=== PATIENT | female | born 1990 | race Caucasian/White ===

== ENCOUNTER 2016-10-15 15:16 | Emergency (ER) | payer OTHER, BC ==
[~2016-10-15] VITALS: Ht 170.2 cm; Wt 79.0 kg
[~2016-10-15 15:16] MED LIST: BIRTH CONTROL PATCH; COLACE100 MG PO; FIORICET,ESG1 TABLET PO; IBUPROFEN600 MG PO; KEFLEX500 MG PO; MICRONOR0.35 MG PO; NEXPLANON68 MG SC; PERCOCET 5/31 TABLET PO; PRENATAL TABLE1 EAC3 PO; ZANTAC75 M1 PO; ZOFRAN ODT8 MG PO; ~No Medications
[2016-10-15 15:39] LABS: HEMATOCRIT 40.4 % (36.0-46.0); MCH 28.6 PG (29.0-34.0); MCHC 32.9 G/DL (30.0-36.0); MCV 86.9 FL (83-99); MEAN PLAT.VOLUME 10.9 uM^3 (9.5-12.4); PLATELET COUNT 264 K/uL (156-360); RBC DIS.WIDTH-CV 12.3 % (11.8-14.6); RBC DIS.WIDTH-SD 39.1 % (39-53); RED BLOOD COUNT 4.65 M/uL (3.80-5.20); WHITE BLOOD COUNT 9.3 K/uL (4.1-10.2)
[2016-10-15 18:29] LABS: ADD MIUA? YES; BILIRUBIN NEGATIVE; BLOOD MODERATE; COLOR STRAW ((YELLOW)); GLUCOSE (STRIP) NEGATIVE; KETONES NEGATIVE; LEUKOCYTES NEGATIVE; NITRITE NEGATIVE; PROTEIN (STRIP) NEGATIVE; UROBILINOGEN 0.2 MG/DL (0.2-1.0)
[2016-10-15 18:36] LABS: BACTERIA RARE /HPF; EPITHELIAL CELLS RARE /HPF; MUCUS TRACE /LPF; RED BLOOD CELLS 0-5 /HPF (0-5); UCUL ADDED? NO; WHITE BLOOD CELLS 0-5 /HPF (0-5)
[2016-10-15 19:12] VITALS: BP 122/81
== END 2016-10-15 19:13 | disposition left against medical advice (07) ==
LOC: EME 15:16
DX: O20.9 Hemorrhage in early pregnancy, unspecified (principal); O99.89 Other specified diseases and conditions complicating pregnancy, childbirth and the puerperium; M54.5 Low back pain; Z3A.01 Less than 8 weeks gestation of pregnancy; Z88.6 Allergy status to analgesic agent
CPT/HCPCS: 76801; 81003; 84702; 85027

== ENCOUNTER 2016-12-07 10:58 | Emergency (ER) | payer BC ==
[~2016-12-07] VITALS: Ht 170.2 cm; Wt 79.9 kg
[2016-12-07 11:55] LABS: HEMATOCRIT 38.2 % (36.0-46.0); MCH 28.8 PG (29.0-34.0); MCHC 33.5 G/DL (30.0-36.0); MEAN PLAT.VOLUME 11.2 uM^3 (9.5-12.4); PLATELET COUNT 219 K/uL (156-360); RBC DIS.WIDTH-CV 12.6 % (11.8-14.6); RBC DIS.WIDTH-SD 39.7 % (39-53); RED BLOOD COUNT 4.44 M/uL (3.80-5.20); WHITE BLOOD COUNT 10.6 K/uL (4.1-10.2)
[2016-12-07 12:13] LABS: ADD MIUA? YES; BILIRUBIN NEGATIVE; BLOOD NEGATIVE; COLOR YELLOW ((YELLOW)); GLUCOSE (STRIP) NEGATIVE; KETONES NEGATIVE; LEUKOCYTES NEGATIVE; NITRITE NEGATIVE; PROTEIN (STRIP) NEGATIVE; SPECIFIC GRAVITY 1.023 (1.000-1.030); UROBILINOGEN 0.2 MG/DL (0.2-1.0)
[2016-12-07 12:16] LABS: BACTERIA NONE SEEN /HPF; EPITHELIAL CELLS RARE /HPF; MUCUS 3+ /LPF; RED BLOOD CELLS 0-5 /HPF (0-5); UCUL ADDED? NO; WHITE BLOOD CELLS 0-5 /HPF (0-5)
[2016-12-07 12:40] LABS: QUANTITATIVE HCG 54050.9 MIU/ML
[2016-12-07 12:41] LABS: CHLORIDE 108 mEq/L (99-109); POTASSIUM 3.8 mEq/L (3.7-5.4); SODIUM 137 mEq/L (136-147)
[2016-12-07 12:43] LABS: GLUCOSE 87 mg/dL (70-99)
[2016-12-07 12:44] LABS: ANION GAP 8 MEQ/L (2-14)
[2016-12-07 12:46] LABS: GFR ESTIMATE (CALCULATED) > 59 mL/min/
[2016-12-07 12:47] LABS: UREA NITROGEN (BUN) 7 mg/dL (9-23)
[2016-12-07 12:59] LABS: POINT-OF-CARE METER ID UU13113702
[2016-12-07] MEDS ORDERED: ZOFRAN ODT4 MG PO (15:22)
[2016-12-07 15:51] VITALS: BP 127/78
== END 2016-12-07 15:54 | disposition home or self-care (01) ==
LOC: EME 10:58
PROVIDERS: Physician Assistant
DX: O21.0 Mild hyperemesis gravidarum (principal); O26.892 Other specified pregnancy related conditions, second trimester; R42 Dizziness and giddiness; R55 Syncope and collapse; M54.5 Low back pain; Z3A.14 14 weeks gestation of pregnancy
CPT/HCPCS: 80048; 81003; 82948; 84702; 85027; 99281; 99285; J2405; J7030

== ENCOUNTER → 2016-12-11 | Outpatient (CLI) | payer BC ==
[~2016-12-11] VITALS: Ht 167.6 cm; Wt 76.0 kg
[~2016-12-11] MED LIST changes: +ZOFRAN ODT4 MG PO
[2016-12-11 17:52] VITALS: BP 99/53
== END | disposition home or self-care (01) ==
LOC: IVINF 17:30
DX: O21.0 Mild hyperemesis gravidarum (principal); Z3A.00 Weeks of gestation of pregnancy not specified
CPT/HCPCS: 96361; 96374; 96374 59; J2405; J7120

== ENCOUNTER 2017-03-28 18:17 | Emergency (ER) | payer BC ==
[~2017-03-28] VITALS: Ht 167.6 cm; Wt 87.7 kg
[2017-03-28 19:33] LABS: ADD MIUA? YES; BILIRUBIN NEGATIVE; BLOOD NEGATIVE; COLOR YELLOW ((YELLOW)); GLUCOSE (STRIP) NEGATIVE; KETONES NEGATIVE; LEUKOCYTES NEGATIVE; NITRITE NEGATIVE; PROTEIN (STRIP) NEGATIVE; SPECIFIC GRAVITY 1.021 (1.000-1.030)
[2017-03-28 19:48] LABS: HEMATOCRIT 33.6 % (36.0-46.0); MCH 28.5 PG (29.0-34.0); MCV 86.4 FL (83-99); MEAN PLAT.VOLUME 10.8 uM^3 (9.5-12.4); PLATELET COUNT 240 K/uL (156-360); RBC DIS.WIDTH-CV 13.1 % (11.8-14.6); RBC DIS.WIDTH-SD 40.8 % (39-53); RED BLOOD COUNT 3.89 M/uL (3.80-5.20); WHITE BLOOD COUNT 11.8 K/uL (4.1-10.2)
[2017-03-28 19:58] LABS: CHLORIDE 110 mEq/L (99-109); POTASSIUM 3.7 mEq/L (3.7-5.4); SODIUM 137 mEq/L (136-147)
[2017-03-28 20:00] LABS: GLUCOSE 89 mg/dL (70-99)
[2017-03-28 20:01] LABS: ANION GAP 4 MEQ/L (2-14)
[2017-03-28 20:02] LABS: TOTAL BILIRUBIN 0.2 mg/dL (0.0-1.0)
[2017-03-28 20:03] LABS: ALKALINE PHOSPHATASE 129 IU/L (3-129)
[2017-03-28 20:04] LABS: GFR ESTIMATE (CALCULATED) > 59 mL/min/
[2017-03-28 20:05] LABS: UREA NITROGEN (BUN) 9 mg/dL (9-23)
[2017-03-28 20:14] LABS: QUANTITATIVE HCG 8255.8 MIU/ML
[2017-03-28 20:28] LABS: BACTERIA RARE /HPF; EPITHELIAL CELLS 1+ /HPF; MUCUS RARE /LPF; RED BLOOD CELLS RARE /HPF (0-5); UCUL ADDED? NO; WHITE BLOOD CELLS RARE /HPF (0-5)
[2017-03-28 20:29] LABS: AMORPHOUS URATES CRYSTALS 2+; CALCIUM OXALATE CRYSTALS 1+ /HPF; CASTS NONE SEEN /LPF; CRYSTALS PRESENT
[2017-03-28 20:59] VITALS: BP 127/72
== END 2017-03-28 21:00 | disposition home or self-care (01) ==
LOC: EME 18:17
PROVIDERS: Physician Assistant Medical
DX: O26.893 Other specified pregnancy related conditions, third trimester (principal); R10.9 Unspecified abdominal pain; R11.0 Nausea; Z3A.29 29 weeks gestation of pregnancy
CPT/HCPCS: 80053; 81003; 84702; 85027; 99281; 99284

== ENCOUNTER 2017-05-10 03:46 | Outpatient (CLI) | payer BC ==
[2017-05-10 04:11] VITALS: BP 123/70
[2017-05-10 07:56] VITALS: BP 116/66
[2017-05-10] MEDS ORDERED: OSELTAMIVIR PHO75 MG PO (08:10)
== END 2017-05-10 09:00 | disposition home or self-care (01) ==
LOC: LDRP-OP → 2WEST 03:47 → LDRP-OP 07-08 16:32
PROVIDERS: Advanced Practice Midwife
DX: O99.511 Diseases of the respiratory system complicating pregnancy, first trimester (principal); J11.1 Influenza due to unidentified influenza virus with other respiratory manifestations; R11.2 Nausea with vomiting, unspecified; Z3A.35 35 weeks gestation of pregnancy
CPT/HCPCS: 59025; 87502; G0378; J2405; J7120

== ENCOUNTER 2017-05-31 11:53 | Outpatient (CLI) | payer BC ==
[~2017-05-31 11:53] MED LIST changes: +OSELTAMIVIR PHO75 MG PO
[2017-05-31 12:39] VITALS: BP 126/66
== END 2017-05-31 14:05 | disposition home or self-care (01) ==
LOC: LDRP-OP 11:53 → 2WEST 11:54 → LDRP-OP 07-08 10:04
DX: O26.893 Other specified pregnancy related conditions, third trimester (principal); Z3A.38 38 weeks gestation of pregnancy
CPT/HCPCS: 59025; G0378

== ENCOUNTER 2017-06-03 08:15 | Inpatient (IN) | payer BC ==
[~2017-06-03] VITALS: Ht 165.1 cm; Wt 89.0 kg
[2017-06-03] VITALS (16 sets, daily range): BP systolic 113–136; BP diastolic 60–93
[2017-06-03 09:49] LABS: BASOPHIL (%) 0.3 % (0-1); EOSINOPHIL (%) 0.6 % (0-5); EOSINOPHIL COUNT 0.1 K/uL (0-0.3); HEMATOCRIT 33.1 % (36.0-46.0); HEMOGLOBIN 10.6 G/DL (11.9-15.5); IMMATURE GRANULOCYTE (%) 0.4 % (0.0-0.7); LYMPHOCYTE (%) 16.5 % (15-42); LYMPHOCYTE COUNT 1.5 K/uL (1.0-2.8); MCH 26.4 PG (29.0-34.0); MCV 82.3 FL (83-99); MONOCYTE (%) 7.4 % (3-12); MONOCYTE COUNT 0.7 K/uL (0-0.8); NEUTROPHIL (%) 74.8 % (45-76); NEUTROPHIL COUNT 6.8 K/uL (1.8-6.4); PLATELET COUNT 239 K/uL (156-360); RBC DIS.WIDTH-CV 14.2 % (11.8-14.6); RBC DIS.WIDTH-SD 42.1 % (39-53); RED BLOOD COUNT 4.02 M/uL (3.80-5.20)
[2017-06-04] VITALS (9 sets, daily range): BP systolic 110–160; BP diastolic 49–81
[2017-06-05 06:32] LABS: BASOPHIL (%) 0.4 % (0-1); BASOPHIL COUNT 0.1 K/uL (0-0.1); EOSINOPHIL (%) 0.9 % (0-5); EOSINOPHIL COUNT 0.1 K/uL (0-0.3); HEMOGLOBIN 8.9 G/DL (11.9-15.5); IMMATURE GRANULOCYTE (%) 0.7 % (0.0-0.7); LYMPHOCYTE (%) 24.6 % (15-42); LYMPHOCYTE COUNT 2.8 K/uL (1.0-2.8); MCH 25.5 PG (29.0-34.0); MCHC 30.7 G/DL (30.0-36.0); MCV 83.1 FL (83-99); MONOCYTE (%) 7.1 % (3-12); MONOCYTE COUNT 0.8 K/uL (0-0.8); NEUTROPHIL (%) 66.3 % (45-76); NEUTROPHIL COUNT 7.5 K/uL (1.8-6.4); PLATELET COUNT 247 K/uL (156-360); RBC DIS.WIDTH-CV 14.6 % (11.8-14.6); RBC DIS.WIDTH-SD 43.9 % (39-53); RED BLOOD COUNT 3.49 M/uL (3.80-5.20); WHITE BLOOD COUNT 11.3 K/uL (4.1-10.2)
[2017-06-05 08:06] VITALS: BP 137/71
[2017-06-05] MEDS ORDERED: Tylenol Extra Streng PO (11:12)
[2017-06-05] MEDS ORDERED: IBUPROFEN800 MG PO (11:12)
== END 2017-06-05 12:19 | disposition home or self-care (01) | DRG 775 ==
LOC: LDRP-OP 08:15 → 2WEST 08:17 → LDRP-OP 20:03 → 2WEST 06-04 02:01 → LDRP-OP 07-08 15:15
PROVIDERS: Advanced Practice Midwife
PROC: 3E0P7GC Introduction of Other Therapeutic Substance into Female Reproductive, Via Natural or Artificial Opening (ICD-10-PCS; principal; 2017-06-03)
PROC: 10907ZC Drainage of Amniotic Fluid, Therapeutic from Products of Conception, Via Natural or Artificial Opening (ICD-10-PCS; 2017-06-03)
PROC: 10E0XZZ Delivery of Products of Conception, External Approach (ICD-10-PCS; 2017-06-04)
DX: O75.89 Other specified complications of labor and delivery (principal); Z3A.39 39 weeks gestation of pregnancy; Z37.0 Single live birth
CPT/HCPCS: 85025; G0378; J0595; J7120